=== PATIENT | female | born 1995 | race Caucasian/White ===

== ENCOUNTER 2017-01-25 16:41 | Emergency (ER) | payer OTHER ==
[~2017-01-25] VITALS: Ht 175.3 cm; Wt 60.0 kg
[2017-01-25 16:44] VITALS: BP 119/76; PULSE 103; RESP 15; TEMP 97.9; O2SAT 98
[2017-01-25] MEDS ORDERED: prenatl vitamin (17:20)
[2017-01-25] MEDS ORDERED: LEVO112T2 PO (17:20)
--- NOTE | 2017-01-25 17:24 | PD ---
HPI Chief Complaint: Related Problem Time Seen by Provider: 17:18 Travel History International Travel<30 days: No Contact w/Intl Traveler<30days: No Traveled to known affect area: No History of Present Illness HPI 21-year-old female proximally 8 weeks , LMP November 27, here for evaluation of vaginal spotting. The patient reports having some light spotting about 5 days ago. Spotting again returned today and has been light. She denies abdominal pain. No discharge other than some light vaginal bleeding. This is her first . She has not yet had an ultrasound to confirm an IUP. [facility] Past Medical History Thyroid Disease: Yes ?: LMP: 11/28/12 Social History Alcohol Use: No Tobacco Use: No Allergies-Medications (Allergen,Severity, Reaction): Coded Allergies: No Known Allergies (Unverified , 01/14/17) Reported Meds & Prescriptions Reported Meds & Active Scripts Active Reported [prenatl vitamin] Levothyroxine (Levothyroxine Sodium) 112 Mcg Tab 112 Mcg PO DAILY Review of Systems Except as stated in HPI: all other systems reviewed are Neg Physical Exam Narrative GENERAL: Well-developed, well-nourished, comfortable, no acute distress. SKIN: Focused skin assessment warm/dry. No pallor. HEAD: Atraumatic. Normocephalic. EYES: Pupils equal and round. No scleral icterus. No injection or drainage. ENT: Mucous membranes pink and moist. CARDIOVASCULAR: Regular rate and rhythm. RESPIRATORY: No accessory muscle use. Clear to auscultation. Breath sounds equal bilaterally. GASTROINTESTINAL: Abdomen soft, non-tender, nondistended. 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 Moderate amount of blood in vaginal vault. Cervical os is open. MUSCULOSKELETAL: No obvious deformities. No clubbing. No cyanosis. No edema. NEUROLOGICAL: Awake and alert. No obvious cranial nerve deficits. Motor grossly within normal limits. Normal speech. PSYCHIATRIC: Appropriate mood and affect; insight and judgment normal. Data Data Last Documented VS Vital Signs Date Time Temp Pulse Resp B/P Pulse Ox O2 Delivery O2 Flow Rate FiO2 01/25/17 17:22 76 18 01/25/17 16:44 97.9 119/76 98 Orders Beta Hcg (Quant/Titer) (01/25/17 17:21) Complete Blood Count With Diff (01/25/17 17:21) Basic Metabolic Panel (Bmp) (01/25/17 17:21) Type And Screen (01/25/17 17:21) Urinalysis - C+S If Indicated (01/25/17 17:21) Urine Culture (01/25/17 17:26) Nitrofurantoin Monohyd Macrocr (Macrobid (01/25/17 18:00) Us Pelvis (Ques Pr/Ect)W Trans (01/25/17 ) Labs Laboratory Tests Test 01/25/17 17:26 White Blood Count 6.2 TH/MM3 Red Blood Count 4.33 MIL/MM3 Hemoglobin 13.1 GM/DL Hematocrit 39.2 % Mean Corpuscular Volume 90.5 FL Mean Corpuscular Hemoglobin 30.3 PG Mean Corpuscular Hemoglobin 33.5 % Concent Red Cell Distribution Width 12.5 % Platelet Count 188 TH/MM3 Mean Platelet Volume 8.2 FL Neutrophils (%) (Auto) 60.3 % Lymphocytes (%) (Auto) 27.2 % Monocytes (%) (Auto) 9.7 % Eosinophils (%) (Auto) 1.3 % Basophils (%) (Auto) 1.5 % Neutrophils # (Auto) 3.7 TH/MM3 Lymphocytes # (Auto) 1.7 TH/MM3 Monocytes # (Auto) 0.6 TH/MM3 Eosinophils # (Auto) 0.1 TH/MM3 Basophils # (Auto) 0.1 TH/MM3 CBC Comment DIFF FINAL Differential Comment Urine Color LIGHT-YELLOW Urine Turbidity HAZY Urine pH 5.5 Urine Specific [place] 1.011 Urine Protein NEG mg/dL Urine Glucose (UA) NEG mg/dL Urine Ketones NEG mg/dL Urine Occult Blood MOD Urine Nitrite POS Urine Bilirubin NEG Urine Urobilinogen LESS THAN 2.0 MG/DL Urine Leukocyte Esterase LARGE Urine RBC 11 /hpf Urine WBC 47 /hpf Urine Squamous Epithelial 3 /hpf Cells Urine Bacteria FEW /hpf Urine Hyaline Casts 1 /lpf Urine Mucus FEW /lpf Microscopic Urinalysis Comment CULTURE INDICATED Sodium Level 139 MEQ/L Potassium Level 3.4 MEQ/L Chloride Level 106 MEQ/L Carbon Dioxide Level 26.8 MEQ/L Anion Gap 6 MEQ/L Blood Urea Nitrogen 12 MG/DL Creatinine 0.88 MG/DL Estimat Glomerular Filtration 81 ML/MIN Rate Random Glucose 86 MG/DL Calcium Level 8.8 MG/DL Human Chorionic Gonadotropin, 5300 MIU/ML Quant Blood Type A POSITIVE Antibody Screen NEGATIVE Blood Bank Comment MDM Medical Decision Making Medical Screen Exam Complete: Yes Emergency Medical Condition: Yes Differential Diagnosis Ectopic , threatened , inevitable , spontaneous , implantation bleed Narrative Course Initial vital signs showed a heart rate of 103 which improved to 76 without any intervention, blood pressure 119/76, pulse ox 98% on room air, oral temp of 97.9 F. CBC is unremarkable. BMP is remarkable for potassium 3.4, otherwise unremarkable. Beta hCG is 5300. UA shows moderate occult blood, positive nitrites, large leukocyte esterase, 11 rbc's, 47 wbc's, few bacteria, culture indicated. The patient was given a dose of Macrobid for this. Blood type is A+. Pelvic ultrasound: CONCLUSION: 1. Sonographic findings are most characteristic of in utero. There is no heart tone identified and there is incongruity between gestational sac size and crown-rump length. The patient and the patient's mom were made aware of all findings. Her cervical os is open. Although this is most likely a demise, I told her that I am diagnosing her with an inevitable at this time. She will follow-up with her LOGISTICS LEAD doctor this week. She was informed on when to return to the emergency department. She verbalizes understanding and agreement with plan. Diagnosis Primary Impression: Inevitable Additional Impression: UTI (urinary tract infection) Qualified Code: N39.0 - Urinary tract infection with hematuria, site unspecified Referrals: [facility] 3 days Additional Instructions: Follow-up with your LOGISTICS LEAD doctor this week. Return to the emergency department for worsening symptoms or any other concerns. Scripts Nitrofurantoin Monohydrate Macrocrystals (Macrobid)100 Mg Ort236 Mg PO BID 7 Days Ref 0 Prov:Norberto Loving MD 01/25/17 Norberto Loving MD Jan 25, 2017 17:24
[2017-01-25 17:43] LABS: AUTOMATED NEUTROPHIL # 3.7 TH/MM3 (1.8-7.7); BASOPHIL # 0.1 TH/MM3 (0-0.2); BASOPHIL % 1.5 % (0.0-2.0); EOSINOPHIL # 0.1 TH/MM3 (0-0.4); EOSINOPHIL % 1.3 % (0.0-4.0); HEMATOCRIT 39.2 % (35.0-46.0); HEMO FLAGS DIFF FINAL; LYMPH % 27.2 % (9.0-44.0); LYMPHOCYTE # 1.7 TH/MM3 (1.0-4.8); MEAN CELL VOLUME 90.5 FL (80.0-100.0); MEAN CORPUSCULAR HEMOGLOBIN 30.3 PG (27.0-34.0); MEAN CORPUSCULAR HGB CONC 33.5 % (32.0-36.0); MONO % 9.7 % (0.0-8.0); NEUT % 60.3 % (16.0-70.0); PLATELET COUNT 188 TH/MM3 (150-450); RED BLOOD COUNT 4.33 MIL/MM3 (4.00-5.30); RED CELL DISTRIBUTION WIDTH 12.5 % (11.6-17.2); WHITE BLOOD COUNT 6.2 TH/MM3 (4.0-11.0)
[2017-01-25 17:50] LABS: BACTERIA, URINE FEW /hpf; BLOOD, URINE MOD (NEG); COMMENT (UR) CULTURE INDICATED; CULTURE IF INDICATED CULTURE INDICATED; GLUCOSE,URINE NEG (NEG); HYALINE CAST, URINE 1 /lpf (RARE); KETONE, URINE NEG (NEG); MUCUS URINE FEW /lpf (OCC); PH, URINE 5.5 (5.0-8.5); SQUAMOUS EPITHELIAL CELL URINE 3 /hpf (0-5); URINE COLOR LIGHT-YELLOW (YELLW/STRAW)
[2017-01-25 17:51] LABS: NITRITE,URINE POS (NEG)
[2017-01-25] MEDS ORDERED: NITROFURANTOIN MONOHYD MACROCR 100 MG CAP PO ONE (18:00)
[2017-01-25 18:05] LABS: BICARBONATE 26.8 MEQ/L (21.0-32.0); POTASSIUM 3.4 MEQ/L (3.5-5.1)
--- NOTE | 2017-01-25 20:28 | RADRPT ---
EXAM DATE/TIME: 01/25/2017 18:58 [facility] COMPARISON: No previous studies available for comparison. INDICATIONS : Bleeding with . LAB(S): Beta-hC MEDICAL HISTORY : . Thyroid disease. SURGICAL HISTORY : None. ENCOUNTER: Initial ACUITY: 1 day PAIN SCORE: 0/10 LOCATION: Bilateral pelvis MEASUREMENTS: UTERUS: 9.8 x 6.0 x 4.9 cm ENDOMETRIAL STRIPE: 3 mm RIGHT OVARY: 3.0 x 2.2 x 1.3 cm LEFT OVARY: 3.5 x 2.7 x 2.1 cm FREE FLUID: Yes In posterior cul de sac and in endocervical canal. CROWN RUMP LENGTH: 1.1 cm, 0.9 cm = 7, 6 WKS 1, 6 DAYS FHR: Non visualized. BPM FINDINGS: The body of uterus and right ovary unremarkable. Corpus luteum cyst left ovary. Within the endometrial cavity there is incongruity between the crown-rump length and gestational sac size. [place]-rump length suggests a gestational age of 2 7 weeks one day versus 5 weeks 3 days for ges tational sac size. Yolk sac present but no heart rate identified. CONCLUSION: 1. Sonographic findings are most characteristic of in utero. There is no heart tone identified and there is incongruity between gestational sac size and crown-rump length. Deep Lancaster MD on January 25, 2017 at 20:23 Board Certified Radiologist. This report was verified electronically.
[2017-01-25] MEDS ORDERED: MACR100C2 PO (21:13)
[2017-01-26] MEDS ORDERED: CALNTAB PO (23:58)
== END 2017-01-25 22:16 | disposition home or self-care (01) ==
LOC: NEPA 16:41
DX: O20.0 Threatened abortion (principal); O23.41 Unspecified infection of urinary tract in pregnancy, first trimester; Z3A.08 8 weeks gestation of pregnancy
CPT/HCPCS: 76700; 76817; 80048; 81001; 84702; 85025; 86850; 86900; 86901; 87086